=== PATIENT | female | born 1945 | race Caucasian/White ===

== ENCOUNTER → 2016-11-26 | Outpatient (CLI) | payer OTHER, MEDICARE ==
--- NOTE | 2016-11-26 11:14 | DX ---
Left Hip, Two Views Indication: Fall. Pain. Technique: AP and frog-leg lateral views. Comparison: None. Findings: The bones are anatomically aligned. No acute fracture. Moderate left hip and mild right hip osteoarthritis evidenced by joint space narrowing and marginal osteophytes. Radiodensity in the low central pelvis may be degenerated uterine leiomyoma Impression: 1. Moderate left and mild right hip osteoarthritis. 2. No acute fracture.
--- NOTE | 2016-11-26 11:19 | DX ---
Left Knee, 3 Views Indication: Pain. Evaluate for arthritis. Technique: AP, lateral, and Merchant views. Comparison: None Findings: Minimal genu varus and 3 mm of lateral translation of the tibia relative to the femoral con dyles. The medial tibiofemoral compartment is moderately narrowed and the lateral tibiofemoral compar tment is minimally wide. Small osteophytes and subchondral sclerosis are present along the medial tib iofemoral joint space. Small spurs emanate off the intercondylar spines. The patella is normally posi tioned on the merchant view simple however, moderate spurs/osteophytes emanate off the lateral and me dial facet. No effusion or loose body. No fracture or bone lesion. Impression: 1. Moderate osteoarthritis principally involves the medial tibiofemoral and patellofemoral joint spa lenin. 2. No fracture, effusion, or loose body.
== END ==
LOC: BMCIMAGING 10:12
PROVIDERS: ATTEND Orthopaedic Surgery
DX: M17.12 Unilateral primary osteoarthritis, left knee (principal); M16.0 Bilateral primary osteoarthritis of hip

== ENCOUNTER → 2017-04-21 | Outpatient (CLI) | payer OTHER, MEDICARE | LOC: FIMAGING 08:49 | PROVIDERS: ATTEND Orthopaedic Surgery Orthopaedic Surgery of the Spine | DX: M51.37 Other intervertebral disc degeneration, lumbosacral region (principal); M12.88 Other specific arthropathies, not elsewhere classified, other specified site ==

== ENCOUNTER 2017-11-10 09:43 | Emergency (ER) | payer OTHER, MEDICARE ==
--- NOTE | 2017-11-10 10:16 | CPEKG ---
Heart Rate: 55 RR Interval: 1091 P-R Interval: 188 QRSD Interval: 110 QT Interval: 412 QTC Interval: 394 P Compton: 53 QRS Compton: 32 T Wave Compton: 17 EKG Severity - ABNORMAL ECG - EKG Impression: SINUS RHYTHM EKG Impression: INCOMPLETE RIGHT BUNDLE BRANCH BLOCK Electronically Signed By: Bebo Squires 10-Nov-2017 16:15:36
--- NOTE | 2017-11-10 10:47 | EDPHY ---
H & P Time Seen by Provider: 11/10/17 10:04 HPI/ROS: Chief complaint. Chest pain HPI. 72-year-old female presents emergency department with retrosternal chest pain that was present upon awakening this morning. Initially worse with deep breathing and possibly with exertion. She did walk a mi yesterday without chest pain though had slight shortness of breath. This morning she took aspirin and Pepcid prior to arrival. She describes as retrosternal pressure with some radiation through to her back. No fever or cough. She has some chronic left lower calf and ankle pain that seems to be a little bit worse today. No swelling however. No real similar symptoms of chest discomfort previously. Multiple orthopedic injuries in problems over the past year ROS Constitutional. no fever/chills, no weakness Eyes. no problems with vision ENT. no sore throat, no nasal drainage Cardiovascular. Chest discomfort Respiratory. Slight shortness of breath Abdominal. no abdominal pain, no nausea/vomiting, no diarrhea . no problems urinating MS. no calf pain/swelling, no neck/back pain, no joint pain Skin. no rash Lymph. no swollen glands Neuro. no headache, no dizziness, no difficulty walking or with speech Past Medical/Surgical History: Past medical history hypertension, appendectomy. Brother had an NV at age 76 Social History: , nonsmoker, no alcohol Smoking Status: Never smoked Physical Exam: General Appearance: Alert well-developed female mild distress vital signs are stable Eyes: Pupils equal and round no pallor or injection. ENT, Mouth: Mucous membranes are moist. Respiratory: There are no retractions, lungs are clear to auscultation. Cardiovascular: Regular rate and rhythm. Gastrointestinal: Abdomen is soft and nontender, no masses, bowel sounds normal. Neurological: Awake and alert, sensory and motor exams grossly normal. Skin: Warm and dry, no rashes. Musculoskeletal: Neck is supple nontender. Extremities symmetrical, full range of motion. Psychiatric: Patient is oriented X 3, there is no agitation. Constitutional: Initial Vital Signs Temperature (C) 36.7 C 11/10/17 09:51 Heart Rate 72 11/10/17 09:51 Respiratory Rate 20 11/10/17 09:51 Blood Pressure 142/71 H 11/10/17 09:51 O2 Sat (%) 98 11/10/17 09:51 O2 Delivery Mode Room Air Allergies/Adverse Reactions: ciprofloxacin Allergy (Severe, Verified 08/10/12 17:48) DIZZINESS Sulfa (Sulfonamide Antibiotics) Allergy (Severe, Verified 12/05/11 11:33) Rash Home Medications: Medication Instructions Recorded Amlodipine Besylate 11/10/17 Losartan Potassium 11/10/17 Pepcid 11/10/17 Medical Decision Making - Diagnostics EKG Interpretation: EKG interpreted by me shows normal sinus rhythm normal interval and axis. QRS shows incomplete right bundle branch block. No significant ST elevation or depression. No arrhythmia. Rate is 55 Imaging Results: Imaging Impressions Chest X-Ray 11/10/17 10:47 Impression: Patchy right lower lung alveolar opacity, suspicious for pneumonia. Chest/Thorax CTA 11/10/17 12:30 Impression: 1. No visible pulmonary embolus. 2. 8 mm right middle lobe nodule. If this has not been previously evaluated, the 2017 Fleischner Society Guidelines recommend follow-up unenhanced chest CT in 6-12 months for a low risk patient, then consider additional followup at 18- 24 months. For a high risk patient, followup CT is recommended in 6-12 months, then again at 18-24 months if there is no change. 3. Airways disease with scattered mucous plugging. 4. Additional findings as above. Findings discussed with Dr. Bebo Squires on 11/10/2017 at 13:56. One-view chest suspicious for pneumonia CT angiogram however does no evidence for pneumonia or pulmonary embolus Procedures: IV normal saline, monitor ED Course/Re-evaluation: Re-evaluation at 1:55 p.m.. Patient without symptoms. She and I discussed imaging and lab results. We discussed treatment plan including criteria for return importance of follow-up and further evaluation. She expresses understanding and agreement Differential Diagnosis: I considered pneumonia, acute coronary syndrome, pulmonary embolus. Findings consistent with bronchitis - Data Points Laboratory Results: Laboratory Results 11/10/17 10:10 11/10/17 10:10 11/10/17 11/10/17 11/10/17 12:50 10:10 10:10 WBC RBC Hgb Hct MCV MCH MCHC RDW Plt Count MPV Neut % (Auto) Lymph % (Auto) [place] % (Auto) Eos % (Auto) Baso % (Auto) Nucleat RBC Rel Count Absolute Neuts (auto) Absolute Lymphs (auto) Absolute Monos (auto) Absolute Eos (auto) Absolute Basos (auto) Absolute Nucleated RBC Immature Gran % Immature Gran # D-Dimer 0.88 ug/mLFEU H ug/mLFEU (0.00-0.50) Sodium 143 mEq/L mEq/L (135-145) Potassium 4.7 mEq/L mEq/L (3.5-5.2) Chloride 107 mEq/L mEq/L (97-110) Carbon Dioxide 23 mEq/l mEq/l (22-31) Anion Gap 13 mEq/L mEq/L (8-16) BUN 16 mg/dL mg/dL (7-23) Creatinine 0.9 mg/dL mg/dL (0.6-1.0) Estimated GFR > 60 Glucose 92 mg/dL mg/dL (70-100) Calcium 9.6 mg/dL mg/dL (8.5-10.4) Troponin I < 0.012 ng/mL ng/mL < 0.012 ng/mL ng/mL (0.000-0.034) (0.000-0.034) 11/10/17 10:10 WBC 7.56 10^3/uL 10^3/uL (3.80-9.50) RBC 4.92 10^6/uL 10^6/uL (4.18-5.33) Hgb 15.4 g/dL g/dL (12.6-16.3) Hct 45.1 % % (38.0-47.0) MCV 91.7 fL fL (81.5-99.8) MCH 31.3 pg pg (27.9-34.1) MCHC 34.1 g/dL g/dL (32.4-36.7) RDW 13.3 % % (11.5-15.2) Plt Count 269 10^3/uL 10^3/uL (150-400) MPV 9.3 fL fL (8.7-11.7) Neut % (Auto) 57.0 % % (39.3-74.2) Lymph % (Auto) 28.2 % % (15.0-45.0) [place] % (Auto) 11.2 % % (4.5-13.0) Eos % (Auto) 1.7 % % (0.6-7.6) Baso % (Auto) 1.5 % % (0.3-1.7) Nucleat RBC Rel Count 0.0 % % (0.0-0.2) Absolute Neuts (auto) 4.31 10^3/uL 10^3/uL (1.70-6.50) Absolute Lymphs (auto) 2.13 10^3/uL 10^3/uL (1.00-3.00) Absolute Monos (auto) 0.85 10^3/uL H 10^3/uL (0.30-0.80) Absolute Eos (auto) 0.13 10^3/uL 10^3/uL (0.03-0.40) Absolute Basos (auto) 0.11 10^3/uL H 10^3/uL (0.02-0.10) Absolute Nucleated RBC 0.00 10^3/uL 10^3/uL (0-0.01) Immature Gran % 0.4 % % (0.0-1.1) Immature Gran # 0.03 10^3/uL 10^3/uL (0.00-0.10) D-Dimer Sodium Potassium Chloride Carbon Dioxide Anion Gap BUN Creatinine Estimated GFR Glucose Calcium Troponin I Departure - Departure Disposition: Home, Routine, Self-Care Clinical Impression: Chest pain Qualifiers: Chest pain type: unspecified Qualified Code(s): R07.9 - Chest pain, unspecified Condition: Good Instructions: Chest Pain (ED) Additional Instructions: Easy activity. Return for worsening symptoms including worsening chest discomfort or trouble breathing. Follow up with Dr. Serrano in the next 1-2 days. Referrals: Zachary Serrano MD [Primary Care Provider] - 1-2 days without fail
[2017-11-10 10:57] LABS: PLATELET COUNT 269 10^3/uL (150-400)
[2017-11-10] MEDS ORDERED: NS 1,000 ML IV ONE (12:30)
[2017-11-10] MEDS ORDERED: IOPAMIDOL (ISOVUE 370) 100 ML BTL IV ONE (12:43)
[2017-11-10 14:37] VITALS: BP 157/72; PULSE 76; RESP 14; TEMP 97.9; O2SAT 96
== END 2017-11-10 14:37 | disposition home or self-care (01) ==
DX: R07.9 Chest pain, unspecified (principal); I10 Essential (primary) hypertension; E86.9 Volume depletion, unspecified
CPT/HCPCS: 71045; 71275; 93005; 96360; 99285; Q9967

== ENCOUNTER → 2018-02-07 | Outpatient (CLI) | payer OTHER, MEDICARE | LOC: BMCIMAGING 09:25 | PROVIDERS: ATTEND Orthopaedic Surgery | PROC: 3E0U3KZ Introduction of Other Diagnostic Substance into Joints, Percutaneous Approach (ICD-10-PCS; principal; 2018-02-07) | DX: M25.552 Pain in left hip (principal) ==